=== PATIENT | female | born 1985 | race Caucasian/White ===

== ENCOUNTER 2017-09-17 09:33 | Emergency (ER) | payer OTHER ==
[~2017-09-17] VITALS: Ht 160 cm; Wt 86.2 kg
[2017-09-17 09:37] VITALS: Ht 160 cm; Wt 86.2 kg
[2017-09-17 10:05] VITALS: BP 125/59
== END 2017-09-17 10:05 | disposition other institution (70) ==
LOC: ED 09:33
DX: S16.1XXA Strain of muscle, fascia and tendon at neck level, initial encounter (principal); G89.29 Other chronic pain; M54.9 Dorsalgia, unspecified; Z04.71 Encounter for examination and observation following alleged adult physical abuse; X58.XXXA Exposure to other specified factors, initial encounter; Y93.89 Activity, other specified; Y92.89 Other specified places as the place of occurrence of the external cause; Y99.8 Other external cause status

== ENCOUNTER 2017-09-23 11:34 | Emergency (ER) | payer OTHER ==
[~2017-09-23] VITALS: Ht 160 cm; Wt 88.5 kg
[2017-09-23 11:51] VITALS: BP 127/79; Ht 160 cm; Wt 88.5 kg
== END 2017-09-23 13:09 | disposition home or self-care (01) ==
LOC: ED 11:34
DX: N61.1 Abscess of the breast and nipple (principal); G89.29 Other chronic pain
CPT/HCPCS: 90715; J2001; J3010

== ENCOUNTER 2017-09-25 15:55 | Emergency (ER) | payer OTHER ==
[~2017-09-25] VITALS: Ht 160 cm; Wt 88.9 kg
[2017-09-25 16:05] VITALS: BP 118/46; Ht 160 cm; Wt 88.9 kg
== END 2017-09-25 17:09 | disposition home or self-care (01) ==
LOC: ED 15:55
DX: Z48.01 Encounter for change or removal of surgical wound dressing (principal); G89.29 Other chronic pain

== ENCOUNTER 2017-09-28 15:46 | Emergency (ER) | payer OTHER ==
[~2017-09-28] VITALS: Ht 160 cm; Wt 89.8 kg
[2017-09-28 15:55] VITALS: Ht 160 cm; Wt 89.8 kg
[2017-09-28 17:10] VITALS: BP 102/65
== END 2017-09-28 17:10 | disposition home or self-care (01) ==
LOC: ED 15:46
DX: L50.0 Allergic urticaria (principal)
CPT/HCPCS: J1100

== ENCOUNTER 2017-12-28 21:44 | Emergency (ER) | payer OTHER ==
[~2017-12-28] VITALS: Ht 160 cm; Wt 91.6 kg
[2017-12-28 21:51] VITALS: Ht 160 cm; Wt 91.6 kg
[2017-12-28 23:17] LABS: BASOPHIL % 0.2 % (0-2); PLATELET COUNT 222 x10^3mcL (130-400); RED CELL DISTRIBUTION WIDTH 13.2 % (11.5-14.5)
[2017-12-28 23:19] LABS: microscopic required? YES; urine erythrocyte TRACE (NEGATIVE)
[2017-12-28 23:35] LABS: CALCIUM 8.1 mg/dL (8.5-10.1); CARBON DIOXIDE 25.2 mmol/L (21-32); CHLORIDE SERUM 105 mmol/L (98-107); CREATININE SERUM 0.5 mg/dL (0.6-1.0); GFR1 > 60 mL/min; GLUCOSE SERUM 96 mg/dL (74-106); POTASSIUM SERUM 3.8 mmol/L (3.5-5.1); SODIUM SERUM 140 mmol/L (136-145)
[2017-12-29 01:02] VITALS: BP 100/60
== END 2017-12-29 01:02 | disposition home or self-care (01) ==
LOC: ED 21:44
PROVIDERS: Emergency Medicine
DX: O23.42 Unspecified infection of urinary tract in pregnancy, second trimester (principal); Z3A.19 19 weeks gestation of pregnancy
CPT/HCPCS: 36415